=== PATIENT | female | born 1980 | race Caucasian/White ===

== ENCOUNTER → 2016-10-20 | Outpatient (CLI) | payer OTHER ==
--- NOTE | 2016-10-20 09:47 | XR ---
EXAMINATION TYPE: XR knee complete LT DATE OF EXAM: 10/20/2016 CLINICAL HISTORY: pain TECHNIQUE: Three views of the left knee are obtained. COMPARISON: None. FINDINGS: There is no acute fracture/dislocation. The tri-compartment joint spaces appear within no rmal limits. The overlying soft tissue appears unremarkable. IMPRESSION: There is no acute fracture or dislocation ICD 10 NO FRACTURE, INITIAL EVALUATION
== END | disposition home or self-care (01) ==
LOC: RADXRMAIN 09:09
PROVIDERS: ATTEND Physician Assistant
DX: M25.562 Pain in left knee (principal)

== ENCOUNTER 2017-08-15 13:39 | Emergency (ER) | payer OTHER ==
[2017-08-15 14:19] VITALS: RESP 18
[2017-08-15 14:49] LABS: Appearance,Urine Clear (Clear); Bilirubin,Urine Negative (Negative); Blood,Urine Negative (Negative); Color,Urine Light Yellow; Glucose,Urine (UA) Negative (Negative); Ketones,Urine Negative (Negative); Leukocyte Esterase,Urine Moderate (Negative); Mucus,Urine Rare /hpf; Nitrite,Urine Negative (Negative); Protein,Urine Negative (Negative); RBC,Urine 1 /hpf (0-5); Squamous Epithelial Cell,Urine 1 /hpf (0-4); Urobilinogen,Urine <2.0 mg/dL (<2.0); WBC,Urine 1 /hpf (0-5)
[2017-08-15] MEDS ORDERED: MORPHINE SULFATE 4 MG/ML SYRINGE IVP STA ×2 (14:52→16:43)
[2017-08-15] MEDS ORDERED: ONDANSETRON 4 MG/2 ML VIAL IVP STA ×2 (14:52→16:41)
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
[2017-08-15] MEDS ORDERED: ACETAMINOPHEN IV (For NPO) 1,000 MG in EMPTY BAG 1 BAG IVPB STA (14:56)
[2017-08-15] MEDS: SODIUM CHLORIDE 0.9% 500 ML IV SCH ×2 (15:04→15:31)
[2017-08-15 15:12] LABS: Basophils % (A) 0 %; Eosinophils # (A) 0.2 k/uL (0-0.7); Eosinophils % (A) 2 %; HCT 42.4 % (34.0-46.0); Lymphocytes # (A) 1.2 k/uL (1.0-4.8); Lymphocytes % (A) 14 %; MCH 27.5 pg (25.0-35.0); MCV 83.1 fL (80.0-100.0); Mean Platelet Volume 7.1; Monocytes # (A) 0.8 k/uL (0-1.0); Monocytes % (A) 8 %; Neutrophils # (A) 6.7 k/uL (1.3-7.7); Neutrophils % (A) 75 %; Platelet Count 229 k/uL (150-450); RDW 13.7 % (11.5-15.5); WBC 8.9 k/uL (3.8-10.6)
[2017-08-15 15:26] LABS: ALT 125 U/L (9-52); AST 114 U/L (14-36); Albumin 4.1 g/dL (3.5-5.0); Alkaline Phosphatase 116 U/L (38-126); Amylase 56 U/L (30-110); Anion Gap 14 mmol/L; Blood Urea Nitrogen 13 mg/dL (7-17); Calcium 9.3 mg/dL (8.4-10.2); Carbon Dioxide 23 mmol/L (22-30); Chloride 104 mmol/L (98-107); Glucose 96 mg/dL (74-99); Lipase 44 U/L (23-300); Potassium 4.1 mmol/L (3.5-5.1); Sodium 141 mmol/L (137-145); Total Bilirubin 0.3 mg/dL (0.2-1.3); Total Protein 7.3 g/dL (6.3-8.2)
[2017-08-15] MEDS ORDERED: diphenhydrAMINE 50 MG/ML 1 ML VIAL IVP STA (15:26)
[2017-08-15] MEDS ORDERED: FAMOTIDINE 20 MG/2 ML VIAL IV STA (15:26)
[2017-08-15] MEDS ORDERED: methylPREDNISolone SOD SUCCI 125 MG/2 ML VIAL IV STA (15:26)
[2017-08-15] MEDS ORDERED: RX INFO: IV CONTRAST WAS GIVEN 1 EACH MISC MISCELLANE PRN (15:27)
[2017-08-15 15:28] LABS: INR 0.9 (<1.2); Prothrombin Time 9.3 sec (9.0-12.0)
--- NOTE | 2017-08-15 16:49 | CT ---
EXAMINATION TYPE: CT abdomen pelvis w con DATE OF EXAM: 08/15/2017 COMPARISON: 08/01/2014 HISTORY: 37-year-old female EPIGASTRIC AND LOWER ABDOMINAL PAIN TECHNIQUE: Contiguous axial scanning of the abdomen and pelvis following administration of 100 ml Iso erin 300 IV contrast. Delayed images through the kidneys and coronal/sagittal reconstructions perform ed. CT DLP: 661.4 mGycm Automated exposure control for dose reduction was used. FINDINGS: Heart is normal size without pericardial effusion. Lung bases clear without pleural effusion. Liver is mildly enlarged to 18.0 cm. There appears to be low insertion of the cystic duct onto the bi le duct. Mild prominence to the biliary system likely secondary to postcholecystectomy status. Portal venous system is patent. No focal liver lesion seen. Adrenal glands, kidneys, spleen, and pancreas appear within normal limits. Prominent fluid filled small bowel loops in the mid to lower abdomen and pelvis. Normal appendix. No dilated small bowel loops, free fluid, or free air. Mild to moderate scattered stool. No pericolonic inflammatory change. Numerous scattered prominent mesenteric lymph nodes measuring up to 9 mm. Uterus and left ovary are visualized. Right ovary not clearly delineated from adjacent bowel loops. S mall amount of pelvic free fluid is noted. No pelvic lymphadenopathy seen. Bones: Some degenerative subarticular sclerosis of the right SI joint. No osseous destructive process . IMPRESSION: 1. PROMINENT FLUID-FILLED SMALL BOWEL LOOPS IN THE LOWER ABDOMEN AND PELVIS. ALSO, THERE ARE NUMEROUS BORDERLINE SIZED MESENTERIC LYMPH NODES MEASURING UP TO 9 MM. CORRELATE FOR POSSIBLE ENTERITIS/MESEN TERIC ADENITIS. 2. SMALL AMOUNT OF CUL-DE-SAC FREE FLUID LIKELY PHYSIOLOGIC.
--- NOTE | 2017-08-15 16:55 | XR ---
EXAMINATION TYPE: XR chest 2V DATE OF EXAM: 08/15/2017 COMPARISON: 11/22/2014 HISTORY: 37-year-old female with fever TECHNIQUE: PA and lateral views FINDINGS: There is some hazy density along the right heart margin. Heart normal size. Aorta and pulmonary vascu lature within normal limits. No other consolidation or pleural effusion. IMPRESSION: There is slight silhouetting of the right heart margin that could represent adjacent atelectasis or e emilie developing pneumonia.
[2017-08-15 17:19] VITALS: BP 127/55; PULSE 104; TEMP 98.5
[2017-08-17 12:54] LABS: C. trachomatis,PCR Negative (Neg,Equiv); Chlamydia trachomatis Source Vagina
[2017-08-18 11:39] LABS: N. gonorrhoeae,PCR Negative (Neg,Equiv); Neisseria Source Vagina
== END 2017-08-15 17:18 | disposition home or self-care (01) ==
LOC: EC 13:39
DX: R10.30 Lower abdominal pain, unspecified (principal); R10.10 Upper abdominal pain, unspecified; M54.5 Low back pain; R11.0 Nausea; R50.9 Fever, unspecified; K21.9 Gastro-esophageal reflux disease without esophagitis; F32.9 Major depressive disorder, single episode, unspecified; F41.9 Anxiety disorder, unspecified; Z79.899 Other long term (current) drug therapy; Z88.2 Allergy status to sulfonamides; Z91.013 Allergy to seafood; Z91.018 Allergy to other foods; Z91.041 Radiographic dye allergy status; Z90.49 Acquired absence of other specified parts of digestive tract
CPT/HCPCS: 36415; 80053; 82150; 83605; 83690; 85025; 85610; 85730; 81001; 81025; 87040; 87808; 87491; 87591; 87070; 87086; 71046; 74177; 99284; 96374; 96375 ×5; 96376; J2270; J1200; J2930; J2405; J0131; Q9967; 87205

== ENCOUNTER → 2017-10-06 | Outpatient (CLI) | payer OTHER ==
--- NOTE | 2017-10-06 13:58 | XR ---
EXAMINATION TYPE: XR chest 2V DATE OF EXAM: 10/06/2017 COMPARISON: Prior chest 08/15/2017 HISTORY: Chest pain TECHNIQUE: Frontal and lateral views of the chest are obtained. FINDINGS: There is no focal air space opacity, pleural effusion, or pneumothorax seen. The cardiac silhouette size is within normal limits. The osseous structures are intact. Suspect a pectus deform ity is present. Surgical clips present right upper quadrant. IMPRESSION: No acute cardiopulmonary process.
== END | disposition home or self-care (01) ==
LOC: RADXRMAIN 11:30
PROVIDERS: ATTEND Physician Assistant
DX: R07.89 Other chest pain (principal)
CPT/HCPCS: 71046

== ENCOUNTER → 2018-05-15 | Outpatient (CLI) | payer OTHER ==
[2018-05-17 01:45] LABS: Amit + Nort 70 ng/mL (90-250); Nortriptyline 20 ng/mL (50-140)
== END | disposition home or self-care (01) ==
LOC: LABWHC1 13:26
PROVIDERS: ATTEND Psychiatry & Neurology Psychiatry
DX: F32.9 Major depressive disorder, single episode, unspecified (principal)
CPT/HCPCS: 36415; G0480; 80335

== ENCOUNTER 2018-12-03 01:09 | Emergency (ER) | payer OTHER ==
[2018-12-03 01:20] VITALS: RESP 18; TEMP 98
[2018-12-03] MEDS ORDERED: SODIUM CHLORIDE 0.9% 500 ML 500 ML IV ONE (02:34)
[2018-12-03 02:49] LABS: Anisocytosis Slight; Basophils % (A) 0 %; Eosinophils # (A) 0.1 k/uL (0-0.7); Eosinophils % (A) 1 %; HCT 42.3 % (34.0-46.0); Lymphocytes # (A) 2.1 k/uL (1.0-4.8); Lymphocytes % (A) 17 %; MCH 28.2 pg (25.0-35.0); MCV 85.5 fL (80.0-100.0); Mean Platelet Volume 8.3; Monocytes # (A) 0.6 k/uL (0-1.0); Monocytes % (A) 5 %; Neutrophils # (A) 9.5 k/uL (1.3-7.7); Neutrophils % (A) 76 %; Platelet Count 230 k/uL (150-450); RBC 4.94 m/uL (3.80-5.40); RDW 16.2 % (11.5-15.5); WBC 12.6 k/uL (3.8-10.6)
[2018-12-03 02:53] LABS: Appearance,Urine Clear (Clear); Bilirubin,Urine Negative (Negative); Blood,Urine Negative (Negative); Color,Urine Yellow; Glucose,Urine (UA) Negative (Negative); Ketones,Urine 4+ (Negative); Leukocyte Esterase,Urine Small (Negative); Mucus,Urine Few /hpf; Nitrite,Urine Negative (Negative); Protein,Urine 1+ (Negative); RBC,Urine 3 /hpf (0-5); Specific Gravity,Urine 1.029 (1.001-1.035); Squamous Epithelial Cell,Urine 2 /hpf (0-4); Urobilinogen,Urine <2.0 mg/dL (<2.0); WBC,Urine 4 /hpf (0-5)
[2018-12-03 03:00] LABS: ALT 24 U/L (9-52); AST 21 U/L (14-36); African American GFR (CKD) >90 (>60 ml/min/1.73 sqM); Albumin 4.4 g/dL (3.5-5.0); Alkaline Phosphatase 64 U/L (38-126); Anion Gap 9 mmol/L; Blood Urea Nitrogen 9 mg/dL (7-17); Calcium 9.7 mg/dL (8.4-10.2); Carbon Dioxide 24 mmol/L (22-30); Chloride 104 mmol/L (98-107); Glucose 92 mg/dL (74-99); Potassium 3.7 mmol/L (3.5-5.1); Sodium 137 mmol/L (137-145); Total Bilirubin 0.4 mg/dL (0.2-1.3)
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
[2018-12-03 03:41] LABS: HCG,Quantitative Serum 59323.6 mIU/mL
[2018-12-03] MEDS ORDERED: CEPHALEXIN 500 MG CAP PO STA (04:05)
[2018-12-03] MEDS ORDERED: CEPHALEXIN 500MG STARTER PACK 4 CAP BTL PO STA (04:05)
[2018-12-03] MEDS ORDERED: SODIUM CHLORIDE 0.9% 500 ML 500 ML IV STA (04:07)
--- NOTE | 2018-12-03 04:11 | US ---
EXAM: US First Trimester, Transabdominal CLINICAL HISTORY: ITS.REASON US Reason: pain TECHNIQUE: Real-time transabdominal obstetrical ultrasound of the maternal pelvis and a first trimester with image documentation. COMPARISON: No relevant prior studies available. FINDINGS: Single live intrauterine measuring 6 weeks by crown-rump length with heart rate of 110 BPM. Uterus: 8.6 x 4.1 x 5.5 cm Right Ovary: 2.3 x 1.6 x 1.5 cm Left Ovary: 2.6 x 1.7 x 1.7 cm IMPRESSION: Single live intrauterine measuring 6 weeks.
[2018-12-03 04:34] VITALS: BP 104/75; PULSE 72
[2018-12-03] MEDS ORDERED: PYRIDOXINE 100 MG/ML 1 ML VIAL IVP SCH (09:00)
== END 2018-12-03 04:35 | disposition home or self-care (01) ==
LOC: EC 01:09
DX: O21.9 Vomiting of pregnancy, unspecified (principal); O99.89 Other specified diseases and conditions complicating pregnancy, childbirth and the puerperium; R82.71 Bacteriuria; O99.281 Endocrine, nutritional and metabolic diseases complicating pregnancy, first trimester; E88.89 Other specified metabolic disorders; R82.4 Acetonuria; R10.9 Unspecified abdominal pain; O99.611 Diseases of the digestive system complicating pregnancy, first trimester; K21.9 Gastro-esophageal reflux disease without esophagitis; M17.11 Unilateral primary osteoarthritis, right knee; O99.341 Other mental disorders complicating pregnancy, first trimester; F41.9 Anxiety disorder, unspecified; F32.9 Major depressive disorder, single episode, unspecified; Z88.2 Allergy status to sulfonamides; Z91.013 Allergy to seafood; Z91.018 Allergy to other foods; Z91.041 Radiographic dye allergy status; Z79.899 Other long term (current) drug therapy; Z90.49 Acquired absence of other specified parts of digestive tract; Z96.651 Presence of right artificial knee joint; Z98.890 Other specified postprocedural states; Z3A.01 Less than 8 weeks gestation of pregnancy
CPT/HCPCS: 36415; 80053; 85025; 81001; 84702; 76801; 99284; 96374; 96361 ×2; J3415

== ENCOUNTER 2019-03-20 23:54 | Outpatient (CLI) | payer OTHER ==
[2019-03-21] MEDS ORDERED: ONDANSETRON 4 MG/2 ML VIAL IVP STA (00:11)
[2019-03-21] MEDS ORDERED: LACTATED RINGERS 1,000 ML IV SCH (00:15)
[2019-03-21 01:38] VITALS: BP 102/60; PULSE 107; RESP 18; TEMP 97
--- NOTE | 2019-03-25 11:02 | P.MSEPDOC ---
Presenting Problems - Arrival Data Date of Arrival on Unit: 03/21/19 Time of Arrival on Unit: 23:45 Mode of Transport: Ambulatory - Complaint OB-Reason for Admission/Chief Complaint: Acute Nausea/Vomiting Medical History - Information : 3 Para: 2 Term: 2 : 0 Abortions: Spontaneous or Elective: 0 Number of Living Children: 2 - Gestational Age Gestational Age by HERACLIO (wks/days): 21 Weeks and 2 Days Review of Systems - Review of Systems Constitutional: No problems Breast: No problems ENT: No problems Cardiovascular: No problems Respiratory: No problems Gastrointestinal: No problems Genitourinary: No problems Musculoskeletal: No problems Neurological: No problems Skin: No problems Vital Signs - Temperature Temperature: 97.0 F Temperature Source: Temporal Artery Scan - Pulse Right Supine Pulse Rate: 107 Pulse Assessment Method: Automatic Cuff - Respirations Respiratory Rate: 18 Oxygen Delivery Method: Room Air O2 Sat by Pulse Oximetry: 99 - Blood Pressure Right Arm Blood Pressure: 102/60 Blood Pressure Mean: 74 Blood Pressure Source: Automatic Cuff Medical Screen Scoring (Pre) - Uterine Contractions Frequency: N/A Duration: N/A Intensity: N/A - Maternal Vital Signs Maternal Temperature: N/A Signs of Preeclampsia: N/A Maternal Respirations: N/A - Maternal Trauma Maternal Trauma: N/A - Assessment - Baby A Baseline FHR: 156 Position: N/A Station: N/A - Total Score - Baby A Total Score - Baby A: 0 - Total Score - Baby B Total Score - Baby B: 0 - Total Score - Baby C Total Score - Baby C: 0 - Level of Risk - Baby A Level of Risk - Baby A: Low (0-5) - Level of Risk - Baby B Level of Risk - Baby B: Low (0-5) - Level of Risk - Baby C Level of Risk - Baby C: Low (0-5) Physician Notification (Pre) - Physician Notified Physician Notified Date: 03/21/19 Physician Notified Time: 00:05 New Order Received: Yes Disposition - Disposition OB Disposition: Discharge to home Discharge Date: 03/21/19 Discharge Time: 01:27 I agree with the RN Medical Screening Exam: No Risk & Benefit of care provided described in d/c instruction: No Diagnosis: 21 WEEKS GESTATION OF
== END 2019-03-21 01:25 | disposition home or self-care (01) ==
LOC: FBPOP 23:54
PROVIDERS: ATTEND Obstetrics & Gynecology
DX: O21.2 Late vomiting of pregnancy (principal); Z3A.21 21 weeks gestation of pregnancy
CPT/HCPCS: 96360; 96375; G0463; J2405; 99214

== ENCOUNTER → 2019-09-09 | Outpatient (CLI) | payer OTHER ==
[2019-09-09 13:54] LABS: Basophils # (A) 0.1 k/uL (0-0.2); Basophils % (A) 1 %; Eosinophils # (A) 0.7 k/uL (0-0.7); Eosinophils % (A) 7 %; HCT 38.6 % (34.0-46.0); HGB 11.6 gm/dL (11.4-16.0); Hypochromasia Moderate; Lymphocytes # (A) 2.5 k/uL (1.0-4.8); Lymphocytes % (A) 24 %; MCH 26.5 pg (25.0-35.0); MCV 88.4 fL (80.0-100.0); Mean Platelet Volume 7.9; Monocytes # (A) 0.7 k/uL (0-1.0); Monocytes % (A) 6 %; Neutrophils # (A) 6.4 k/uL (1.3-7.7); Neutrophils % (A) 61 %; Platelet Count 217 k/uL (150-450); RBC 4.37 m/uL (3.80-5.40); RDW 13.5 % (11.5-15.5); WBC 10.5 k/uL (3.8-10.6)
== END | disposition home or self-care (01) ==
LOC: LABPAT 12:17
PROVIDERS: ATTEND Obstetrics & Gynecology
DX: Z01.818 Encounter for other preprocedural examination (principal)
CPT/HCPCS: 85025

== ENCOUNTER → 2019-11-13 | Outpatient (CLI) | payer OTHER ==
[2019-11-13 14:07] LABS: Basophils % (A) 1 %; Eosinophils # (A) 0.1 k/uL (0-0.7); Eosinophils % (A) 2 %; HCT 40.3 % (34.0-46.0); HGB 12.6 gm/dL (11.4-16.0); Hypochromasia Slight; Lymphocytes # (A) 2.1 k/uL (1.0-4.8); Lymphocytes % (A) 30 %; MCH 26.3 pg (25.0-35.0); MCHC 31.2 g/dL (31.0-37.0); MCV 84.3 fL (80.0-100.0); Mean Platelet Volume 8.2; Monocytes # (A) 0.4 k/uL (0-1.0); Monocytes % (A) 5 %; Neutrophils # (A) 4.4 k/uL (1.3-7.7); Neutrophils % (A) 62 %; Platelet Count 283 k/uL (150-450); RBC 4.78 m/uL (3.80-5.40); RDW 15.2 % (11.5-15.5); WBC 7.1 k/uL (3.8-10.6)
== END | disposition home or self-care (01) ==
LOC: LABPAT 12:01
PROVIDERS: ATTEND Obstetrics & Gynecology
DX: Z01.818 Encounter for other preprocedural examination (principal); Z30.2 Encounter for sterilization
CPT/HCPCS: 85025

== ENCOUNTER 2019-12-02 09:12 | Day surgery (SDC) | payer OTHER ==
[2019-11-26 11:58] VITALS: BMI 24.1
--- NOTE | 2019-11-28 15:11 | HP ---
HISTORY AND PHYSICAL DATE OF SURGERY: 12/02/2019 HISTORY OF PRESENT ILLNESS: The patient is a 39-year-old 3, para 2-1-0-3, who is status post normal vaginal delivery several months ago and has requested permanent sterilization with tubal ligation. She understands the permanent nature of the procedure and wishes to proceed. PAST MEDICAL HISTORY: None. PAST SURGICAL HISTORY: Significant for D and C on two separate occasions. Retained placenta following delivery. She additionally had a laparoscopic cholecystectomy in 2014 and she has had several knee surgeries on the right knee. There were no history of any anesthetic concerns. OBSTETRICAL HISTORY: 3, para 2-1-0-3 with 2 term deliveries and 1 delivery. The last 2 which were complicated by significant retained placenta and obstetrical/ hemorrhage. Method of contraception currently is Depo-Provera. GYNECOLOGIC HISTORY: Unremarkable with no history of any infections to include STDs. FAMILY HISTORY: Noncontributory. SOCIAL HISTORY: The patient is single and does work outside the home. She is a nonsmoker, though she does have a history of smoking in the past. She reports occasional alcohol. No other significant social concerns. CURRENT MEDICATIONS: Include Depo-Provera as noted above. Additionally, she takes omeprazole 40 mg daily and Zoloft 50 mg daily and Ventolin metered-dose inhaler as needed. ALLERGIES: SULFA caused hives. REVIEW OF SYSTEMS: Confined to history of present illness. PHYSICAL EXAMINATION: Her vital signs are stable. The patient is afebrile. In general, this is a well- developed, well-nourished white female in no acute distress. Her heart has a regular rhythm and rate without murmur. Her lungs are clear to auscultation bilaterally in all molina. Her abdomen is nondistended, has normoactive bowel sounds, soft, nontender, without any palpable masses, hepatosplenomegaly, or hernias. Her extremities are without any cyanosis, clubbing, or edema and are nontender to palpation bilaterally. Pelvic examination demonstrates normal external genitalia and BUS with normal vaginal mucosa and cervix. There is no cervical motion tenderness. Uterus is approximately 45 weeks in size, mid plane, mobile, nontender, normal in shape. The adnexa are normal AND nontender without mass bilaterally. ASSESSMENT AND PLAN: Undesired fertility: The patient has requested laparoscopic bilateral tubal occlusion with Filshie clips. She understands the permanent nature of the procedure as well as the subsequent potential risk for ectopic should it fail. The risks and complications of the procedure itself have been thoroughly discussed including risk for bleeding, bleeding requiring transfusion, infection, and injury to local structures to specifically include the bowel, bladder, and ureters. She has understood all this and agreed to proceed. We are scheduled for the morning of December 01 for the above procedure as outlined above. MMODL / IJN: [id number] /
[~2019-12-02 09:12] MED LIST: DEXAMETHASONE SOD PHOSPHATE 10 MG/ML 1 ML VIAL IV ONE; LACTATED RINGERS 1,000 ML IV SCH; Pre Op ABX Message 1 EACH MISC MISCELLANE ONE
[2019-12-02] MEDS ORDERED: LIDOCAINE 1% (10MG/ML) FOR IV START INTRADERMA ONE (09:42)
[2019-12-02] MEDS ORDERED: SCOPOLAMINE 1.5MG/72HR PATCH TRANSDERM ONE (09:52)
[2019-12-02] MEDS: ONDANSETRON 4 MG/2 ML VIAL IVP ONE ×2 (09:52→11:56)
[2019-12-02] MEDS ORDERED: ONDANSETRON 4 MG/2 ML VIAL ONE (09:54)
[2019-12-02] MEDS ORDERED: NEOSTIGMINE 1 MG/ML 10 ML VIAL ONE (10:52)
[2019-12-02] MEDS ORDERED: LIDOCAINE 1% INJ 10MG/ML (20 ML MDV) ONE (10:52)
[2019-12-02] MEDS ORDERED: SUCCINYLCHOLINE CHLORIDE 100 MG/5 ML SYR IV ONE (10:52)
[2019-12-02] MEDS ORDERED: PROPOFOL 10 MG/ML 20 ML VIAL IV ONE (10:52)
[2019-12-02] MEDS ORDERED: KETOROLAC 15 MG/ML 1 ML VIAL ONE (10:52)
[2019-12-02] MEDS ORDERED: fentaNYL (PF) 50 MCG/ML 2 ML AMP ONE (10:52)
[2019-12-02] MEDS ORDERED: ROCURONIUM BROMIDE 10 MG/ML 5 ML VIAL IV ONE (10:52)
[2019-12-02] MEDS ORDERED: GLYCOPYRROLATE 0.2 MG/ML 2 ML VIAL ONE (10:52)
[2019-12-02] MEDS ORDERED: MIDAZOLAM 2 MG/2 ML VIAL ONE (10:52)
[2019-12-02] MEDS ORDERED: HYDROmorphone (PF) 1 MG/ML ONE (10:52)
[2019-12-02] MEDS ORDERED: BUPIVACAINE (PF) 0.25% 30 ML VIAL SQ ONE ×2 (11:22→11:27)
[2019-12-02] MEDS ORDERED: SIMETHICONE 80 MG CHEWABLE PO PRN (11:44)
[2019-12-02] MEDS ORDERED: METOCLOPRAMIDE 5 MG/ML 2 ML VIAL IVP PRN (11:44)
[2019-12-02] MEDS ORDERED: diphenhydrAMINE 50 MG/ML 1 ML VIAL IVP PRN (11:44)
[2019-12-02] MEDS ORDERED: Acetaminophen-Codeine 300-30mg TAB PO PRN ×2 (11:44)
[2019-12-02] MEDS ORDERED: IBUPROFEN 600 MG TAB PO PRN (11:44)
[2019-12-02] MEDS ORDERED: ONDANSETRON 4 MG/2 ML VIAL IVP PRN (11:44)
[2019-12-02] MEDS ORDERED: KETOROLAC 15 MG/ML 1 ML VIAL IVP PRN (11:44)
[2019-12-02] MEDS ORDERED: LACTATED RINGERS 1,000 ML IV SCH (11:45)
--- NOTE | 2019-12-02 11:51 | P.OP ---
Date of Procedure: 12/02/19 Preoperative Diagnosis: 1. Multiparity #2. Undesired fertility Postoperative Diagnosis: Same Procedure(s) Performed: #1. Laparoscopic bilateral tubal occlusion with Filshie clips Anesthesia: LATRICE Surgeon: Randell Valle Estimated Blood Loss (ml): 2 IV fluids (ml): 500 Urine output (ml): 50 Pathology: none sent Condition: stable Disposition: PACU Operative Findings: Preoperative pelvic examination demonstrated a 4 week anteverted mobile normal shaped uterus with normal adnexa bilaterally. These findings were confirmed intraoperatively with an entirely normal pelvis including uterus, tubes, and ovaries. There was no evidence of endometriosis or any scarring in the pelvis. The appendix was entirely normal though somewhat long. The small bowel, large bowel, liver, and diaphragm were normal to inspection where seen. Description of Procedure: The patient was prepped and draped in usual fashion after general endotracheal anesthesia was administered by the anesthesiologist. A speculum was placed and the anterior lip of the cervix grasped with a single-tooth tenaculum allowing placement of an acorn cannula for manipulation without difficulty. The bladder wasn't draining approximately 50 mL of clear urine. Attention was turned to the abdomen where a 5 mm incision was made and a semilunar fashion and a foldable the umbilicus allowing insertion of a 5 mm optical trocar under direct vi sualization without difficulty. A pneumoperitoneum was infused in Trendelenburg positioning utilized to sweep the bowel from the pelvis. A site was selected approximate 4-5 cm above the symphysis in the midline where an 8 mm incision was made in the transverse plane allowing insertion of an 8 mm trocar under direct visualization without difficulty. The blunt probe was utilized to further sweep the bowel from the pelvis with entirely normal findings as noted above. The probe was replaced with a Filshie clip applicator which was utilized to place a clip approximately 2-3 cm from the cornu of the uterus across the entire thickness of the right fallopian tube. A second Filshie clip was placed across the left fallopian tube in similar fashion. Remainder of the abdomen was then explored with the findings entirely normal as noted above. All instrumentation was removed and the pneumoperitoneum evacuated through the 2 trocar sites and the trochars removed. The skin incisions were closed with interrupted subcuticular stitches of 4-0 Vicryl followed by half-inch Steri-Strips placed with Mastisol. The incisions were infused with a total of 10 mL of quarter percent Marcaine without epinephrine equally divided between the 2 incisions. Estimated blood loss for the case was 2 mL or less. There were no complications. All sponge, instrument, and needle counts were correct. The patient tolerated the procedure well and proceeded to the recovery room in stable condition.
[2019-12-02 11:53] VITALS: TEMP 97.4
[2019-12-02] MEDS: HYDROmorphone 0.5 MG/0.5 ML SYRINGE IVP PRN ×2 (11:56→12:02)
[2019-12-02] MEDS ORDERED: HYDROcodone/APAP 5-325MG 1 EACH TAB ONE ×2 (12:37→13:16)
[2019-12-02] MEDS ORDERED: HYDROcodone/APAP 5-325MG 1 EACH TAB PO ONE ×3 (12:39→13:15)
[2019-12-02 13:01] VITALS: RESP 20
[2019-12-02 13:19] VITALS: BP 118/72; PULSE 103
== END 2019-12-02 13:56 | disposition home or self-care (01) ==
LOC: OR 09:12
PROVIDERS: ATTEND Obstetrics & Gynecology
DX: Z30.2 Encounter for sterilization (principal); J45.909 Unspecified asthma, uncomplicated; E11.9 Type 2 diabetes mellitus without complications; N19 Unspecified kidney failure; E07.9 Disorder of thyroid, unspecified; R56.9 Unspecified convulsions; F32.9 Major depressive disorder, single episode, unspecified; F41.9 Anxiety disorder, unspecified; K21.9 Gastro-esophageal reflux disease without esophagitis; Z90.49 Acquired absence of other specified parts of digestive tract; Z79.3 Long term (current) use of hormonal contraceptives; Z87.891 Personal history of nicotine dependence; Z79.899 Other long term (current) drug therapy; Z88.2 Allergy status to sulfonamides; Z91.013 Allergy to seafood; Z91.048 Other nonmedicinal substance allergy status; Z91.018 Allergy to other foods; Z86.73 Personal history of transient ischemic attack (TIA), and cerebral infarction without residual deficits
CPT/HCPCS: 81025; 58671; J2250; J1100; J2710; J2405; J2001; J3010; J1170 ×2; J1885; J0330; J2704

== ENCOUNTER 2020-02-01 10:10 | Emergency (ER) | payer OTHER ==
[2020-02-01] MEDS ORDERED: KETOROLAC 15 MG/ML 1 ML VIAL IVP STA (10:23)
[2020-02-01] MEDS ORDERED: ONDANSETRON 4 MG/2 ML VIAL IVP STA (10:23)
[2020-02-01] MEDS ORDERED: SODIUM CHLORIDE 0.9% 1,000 ML IV STA ×2 (10:23)
[2020-02-01] MEDS ORDERED: DEXAMETHASONE SOD PHOSPHATE 10 MG/ML 1 ML VIAL IV STA (10:24)
[2020-02-01 10:26] VITALS: RESP 18
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
[2020-02-01 10:53] LABS: African American GFR (CKD) >90 (>60 ml/min/1.73 sqM); Albumin 4.2 g/dL (3.5-5.0); Anion Gap 8 mmol/L; Blood Urea Nitrogen 15 mg/dL (7-17); Calcium 9.5 mg/dL (8.4-10.2); Carbon Dioxide 24 mmol/L (22-30); Chloride 105 mmol/L (98-107); Glucose 109 mg/dL (74-99); Non-African American GFR(CKD) >90 (>60 ml/min/1.73 sqM); Potassium 3.8 mmol/L (3.5-5.1); Sodium 137 mmol/L (137-145); Total Protein 7.6 g/dL (6.3-8.2)
[2020-02-01 10:59] LABS: AST 914 U/L (14-36); Basophils % (A) 0 %; Eosinophils # (A) 0.1 k/uL (0-0.7); Eosinophils % (A) 0 %; HCT 41.7 % (34.0-46.0); HGB 13.3 gm/dL (11.4-16.0); Lymphocytes # (A) 1.2 k/uL (1.0-4.8); Lymphocytes % (A) 8 %; MCH 28.2 pg (25.0-35.0); MCHC 31.8 g/dL (31.0-37.0); MCV 88.7 fL (80.0-100.0); Mean Platelet Volume 8.5; Monocytes # (A) 0.9 k/uL (0-1.0); Monocytes % (A) 6 %; Neutrophils # (A) 12.4 k/uL (1.3-7.7); Neutrophils % (A) 84 %; Platelet Count 197 k/uL (150-450); RDW 14.1 % (11.5-15.5); WBC 14.8 k/uL (3.8-10.6)
[2020-02-01 11:06] LABS: ALT 761 U/L (4-34); Alkaline Phosphatase 233 U/L (38-126)
[2020-02-01 12:35] VITALS: BP 133/78; PULSE 76; TEMP 98.3
[2020-02-01 20:04] LABS: Hepatitis A Antibody IgM Non-Reactive (Non-Reactive); Hepatitis B Core IgM Non-Reactive (Non-Reactive); Hepatitis B Surface Antigen Non-Reactive (Non-Reactive); Hepatitis C IgG Antibody Non-Reactive (Non-Reactive)
== END 2020-02-01 12:35 | disposition home or self-care (01) ==
LOC: EC 10:10
DX: J03.90 Acute tonsillitis, unspecified (principal); R74.01 Elevation of levels of liver transaminase levels; R11.2 Nausea with vomiting, unspecified; K21.9 Gastro-esophageal reflux disease without esophagitis; J45.909 Unspecified asthma, uncomplicated; Z79.899 Other long term (current) drug therapy; Z91.048 Other nonmedicinal substance allergy status; Z91.013 Allergy to seafood; Z88.2 Allergy status to sulfonamides; Z91.018 Allergy to other foods; Z87.891 Personal history of nicotine dependence; Z96.651 Presence of right artificial knee joint
CPT/HCPCS: 36415; 86665 ×2; 80053; 80074; 86663; 83690; 85025; 86308; 86664; 87081; 87430; 99283; 96374; 96375 ×2; 96361 ×2; J1100; J2405; J1885

== ENCOUNTER → 2020-05-06 | Outpatient (CLI) | payer OTHER ==
--- NOTE | 2020-05-06 14:09 | XR ---
EXAMINATION TYPE: XR lumbar spine 2 or 3V DATE OF EXAM: 05/06/2020 COMPARISON: None HISTORY: Low back pain TECHNIQUE: Three-view lumbar spine FINDINGS: There may be a transitional L5 vertebral level. The T12 ribs appear rudimentary. Pedicles appear intact. Vertebral body heights are preserved. Disc heights are preserved. IMPRESSION: 1. No acute osseous abnormality lumbar spine
== END | disposition home or self-care (01) ==
LOC: RADXRMAIN 13:51
PROVIDERS: ATTEND Family Medicine
DX: M54.5 Low back pain (principal)
CPT/HCPCS: 72100

== ENCOUNTER → 2022-04-13 | Outpatient (CLI) | payer OTHER ==
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
== END ==
LOC: SLEEP 10:21
PROVIDERS: ATTEND Internal Medicine
DX: R06.83 Snoring (principal); G25.81 Restless legs syndrome; K21.9 Gastro-esophageal reflux disease without esophagitis; M54.9 Dorsalgia, unspecified; Z96.651 Presence of right artificial knee joint; Z99.89 Dependence on other enabling machines and devices; F32.A Depression, unspecified; J45.909 Unspecified asthma, uncomplicated; Z91.041 Radiographic dye allergy status; Z88.2 Allergy status to sulfonamides; Z91.018 Allergy to other foods; Z91.013 Allergy to seafood; Z87.891 Personal history of nicotine dependence
CPT/HCPCS: 99211

== ENCOUNTER 2022-06-14 06:44 | Day surgery (SDC) | payer OTHER ==
[2022-06-08 12:18] VITALS: BMI 31.5
[2022-06-14 07:19] VITALS: RESP 16; TEMP 98.3
[2022-06-14] MEDS ORDERED: LACTATED RINGERS 1,000 ML IV ONE (07:26)
[2022-06-14] MEDS ORDERED: fentaNYL (PF) 50 MCG/ML 2 ML AMP ONE (07:38)
[2022-06-14] MEDS ORDERED: MIDAZOLAM 2 MG/2 ML VIAL ONE (07:38)
[2022-06-14] MEDS ORDERED: methylPREDNISolone ACETATE 80 MG/ML 1 ML VIAL ONE (07:38)
--- NOTE | 2022-06-14 07:51 | P.PCN ---
Date of Procedure: 06/14/22 Procedure(s) Performed: PREOPERATIVE DIAGNOSIS: 1- Lumbar Degenerative Disc Diseases 2-lumbar spinal stenosis POSTOPERATIVE DIAGNOSIS: Same as preop diagnosis. PROCEDURE 1. Lumbar epidural steroid injection under fluoroscopic guidance at the L4-5 level. (Fluoroscopy imaging was available in radiology department) 2. Lumbar epidurogram. ANESTHESIA: moderate sedation with intravenous Versed 2 mg ,and fentanyle 100 Mcg Sedation start time : 740 Sedation end time : 746 EBL: Minimal PROCEDURE INDICATION: The patient with low back pain and radiculitis symptoms unresponsive to conservative treatment. Fluoroscopy was used to optimize visualization of the needle placement and to maximize safety. PROCEDURE DESCRIPTION / TECHNIQUE: The patient was seen and identified in the preoperative area. Risks, benefits, complications including but not limited to infections ,bleeding ,allergic reaction to the medications ,nerve damage and not complete pain releife , and alternatives were discussed with the patient. The patient agreed to proceed with the procedure and signed the consent. IV was started, and vital signs were stable. Patient was taken to the OR and time out was completed. The patient was placed in the prone position on procedure table and a pillow was placed under the abdomen to reduce lumbar lordosis. The lumbosacral area was prepped and draped in the usual sterile fashion.ere closely monitored during the procedure. Conscious sedation was used during the procedure to decrease patients anxiety. Vital signs was monitered during the entire procedure. Using anterior-posterior fluoroscopy, the L4-5 interlaminar space was identified and the skin over this site was marked and then infiltrated with 1% lidocaine subcutaneously. Subsequently, a 20-gauge Tuohy epidural needle was inserted and advanced toward the epidural space using the ``Loss of resistance technique and guided by AP and lateral fluoroscopy, after negative aspiration for blood and CSF and in the absence of paresthesias. Again after negative aspiration, a 6 ml mixture containing 80 mg of Depo-medrol ( Preservetive Free ), and 2 ml of preservative free Normal Saline, and 2 ml of preservative free lidocaine 1% so lution was injected and a washout of epidurogram was seen. Needle was withdrawn intact, skin was cleansed, and bandages were applied. COMPLICATIONS: None DISPOSITION / PLANS: The patient was placed in a supine position and transferred to the recovery area in a stable condition for observation. There was no evidence of lower extremity motor or sensory deficit after the procedure. Patient was discharged from the recovery room after meeting discharge criteria. Home discharge instructions were given to the patient by the staff. The patient was reexamined prior to discharge. The patient will schedule a follow up in the clinic in 2-4 weeks.
[2022-06-14] MEDS ORDERED: IV FLUID CONTINUATION 1,000 ML IV ONE (07:55)
--- NOTE | 2022-06-14 08:00 | FL ---
Intraoperative/procedural fluoroscopic services were provided for lumbar epidural steroid injection. Total fluoroscopy time is 1 second with a total of 1 submitted image to PACS. Please see the operativ e note for further details.
[2022-06-14 08:24] VITALS: BP 115/79; PULSE 85
== END 2022-06-14 08:26 | disposition home or self-care (01) ==
LOC: ORPAIN 06:44
PROVIDERS: ATTEND Specialist
DX: M51.16 Intervertebral disc disorders with radiculopathy, lumbar region (principal); M48.061 Spinal stenosis, lumbar region without neurogenic claudication; Z91.041 Radiographic dye allergy status; Z91.013 Allergy to seafood
CPT/HCPCS: 81025; 62323; J2250; J1040; J3010

== ENCOUNTER → 2022-07-04 | Outpatient (CLI) | payer OTHER ==
[2022-07-04 12:42] VITALS: BP 123/80; PULSE 98; RESP 18; TEMP 97.9
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
== END ==
LOC: PNWHC3 12:06
PROVIDERS: ATTEND Specialist
DX: M51.36 Other intervertebral disc degeneration, lumbar region (principal); M47.816 Spondylosis without myelopathy or radiculopathy, lumbar region; M48.061 Spinal stenosis, lumbar region without neurogenic claudication; J45.909 Unspecified asthma, uncomplicated; M19.90 Unspecified osteoarthritis, unspecified site; K21.9 Gastro-esophageal reflux disease without esophagitis; Z87.891 Personal history of nicotine dependence; Z91.02 Food additives allergy status; Z91.013 Allergy to seafood; Z91.018 Allergy to other foods; Z88.2 Allergy status to sulfonamides; M51.26 Other intervertebral disc displacement, lumbar region
CPT/HCPCS: 99211

== ENCOUNTER 2022-07-17 08:45 | Emergency (ER) | payer OTHER ==
[2022-07-17 08:57] VITALS: BP 117/77; PULSE 93; RESP 16; TEMP 98.8
[2022-07-17] MEDS ORDERED: KETOROLAC 15 MG/ML 1 ML VIAL IVP STA (09:51)
[2022-07-17] MEDS ORDERED: KETOROLAC 15 MG/ML 1 ML VIAL IM STA (09:51)
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
--- NOTE | 2022-07-17 10:11 | XR ---
EXAMINATION TYPE: XR knee complete RT DATE OF EXAM: 07/17/2022 CLINICAL HISTORY: Injury with pain TECHNIQUE: Three views of the right knee are obtained. COMPARISON: None. FINDINGS: There is no acute fracture/dislocation evident in the right knee. Partial visualization of a large intramedullary leonor in the tibia. There is metallic surgical change anterior distal femur als o present. Mild tricompartment joint space loss. No significant spurring. Moderate to large-sized sup rapatellar joint effusion noted. IMPRESSION: As above.
[2022-07-17] MEDS ORDERED: ACET/COD 300 MG/30 MG STARTER PACK 6 TAB BTL PO STA (10:26)
== END 2022-07-17 10:28 | disposition home or self-care (01) ==
LOC: EC 08:45
DX: S83.91XA Sprain of unspecified site of right knee, initial encounter (principal); J45.909 Unspecified asthma, uncomplicated; K21.9 Gastro-esophageal reflux disease without esophagitis; F32.A Depression, unspecified; F41.9 Anxiety disorder, unspecified; F12.90 Cannabis use, unspecified, uncomplicated; Z87.891 Personal history of nicotine dependence; Z79.899 Other long term (current) drug therapy; Z88.1 Allergy status to other antibiotic agents; Z88.2 Allergy status to sulfonamides; Z88.8 Allergy status to other drugs, medicaments and biological substances; Z90.49 Acquired absence of other specified parts of digestive tract; X50.1XXA Overexertion from prolonged static or awkward postures, initial encounter
CPT/HCPCS: 96372 ×2; 99283 ×2; 96374; 73562; L1830; J1885

== ENCOUNTER 2022-07-28 06:52 | Day surgery (SDC) | payer OTHER ==
[2022-07-28] MEDS ORDERED: LIDOCAINE 1% (10MG/ML) FOR IV START INTRADERMA PRN (06:59)
[2022-07-28] MEDS ORDERED: LACTATED RINGERS 1,000 ML IV SCH ×2 (06:59)
[2022-07-28 07:25] VITALS: TEMP 97.5
[2022-07-28] MEDS ORDERED: MIDAZOLAM 2 MG/2 ML VIAL ONE (07:45)
[2022-07-28] MEDS ORDERED: fentaNYL (PF) 50 MCG/ML 2 ML AMP ONE (07:45)
[2022-07-28] MEDS ORDERED: methylPREDNISolone ACETATE 80 MG/ML 1 ML VIAL ONE (07:45)
--- NOTE | 2022-07-28 07:56 | P.PCN ---
Date of Procedure: 07/28/22 Procedure(s) Performed: PREOPERATIVE DIAGNOSIS: 1- Lumbar Degenerative Disc Diseases 2-lumbar spinal stenosis POSTOPERATIVE DIAGNOSIS: Same as preop diagnosis. PROCEDURE 1. Lumbar epidural steroid injection under fluoroscopic guidance at the L4-5 level. (Fluoroscopy imaging was available in radiology department) ANESTHESIA: moderate sedation with intravenous Versed 2 mg ,and fentanyle 100 Mcg Sedation start time : 0748 Sedation end time : 0753 EBL: Minimal PROCEDURE INDICATION: The patient with low back pain and radiculitis symptoms unresponsive to conservative treatment. Fluoroscopy was used to optimize visuali zation of the needle placement and to maximize safety. PROCEDURE DESCRIPTION / TECHNIQUE: The patient was seen and identified in the preoperative area. Risks, benefits, complications including but not limited to infections ,bleeding ,allergic reaction to the medications ,nerve damage and not complete pain releife , and alternatives were discussed with the patient. The patient agreed to proceed with the procedure and signed the consent. IV was started, and vital signs were stable. Patient was taken to the OR and time out was completed. The patient was placed in the prone position on procedure table and a pillow was placed under the abdomen to reduce lumbar lordosis. The lumbosacral area was prepped and draped in the usual sterile fashion.ere closely monitored during the procedure. Conscious sedation was used during the procedure to decrease patients anxiety. Vital signs was monitered during the entire procedure. Using anterior-posterior fluoroscopy, the L4-5 interlaminar space was identified and the skin over this site was marked and then infiltrated with 1% lidocaine subcutaneously. Subsequently, a 20-gauge Tuohy epidural needle was inserted and advanced toward the epidural space using the ``Loss of resistance technique and guided by AP and lateral fluoroscopy, after negative aspiration for blood and CSF and in the absence of paresthesias. Again after negative aspiration, a 6 ml mixture containing 80 mg of Depo-medrol ( Preservetive Free ), and 2 ml of preservative free Normal Saline, and 2 ml of preservative free lidocaine 1% solution was injected . Needle was withdrawn intact, skin was cleansed, and bandages were applied. COMPLICATIONS: None DISPOSITION / PLANS: The patient was placed in a supine position and transferred to the recovery area in a stable condition for observation. There was no evidence of lower extremity motor or sensory deficit after the procedure. Patient was discharged from the recovery room after meeting discharge criteria. Home discharge instructions were given to the patient by the staff. The patient was reexamined prior to discharge. The patient will schedule a follow up in the clinic in 2-4 weeks. note= Isovue was injected because patient has ALLERGY to iodine and IVP dye.
[2022-07-28] MEDS ORDERED: IV FLUID CONTINUATION 900 ML IV ONE (08:00)
[2022-07-28 08:04] VITALS: RESP 20
[2022-07-28 08:17] VITALS: BP 121/88; PULSE 69
--- NOTE | 2022-07-28 12:24 | FL ---
EXAMINATION TYPE: FL guided pain mgmt statistic DATE OF EXAM: 07/28/2022 FLUOROSCOPY Fluoroscopy time of 1 seconds was used during lumbar epidural steroid injection. 1 image/s document/ s the procedure. DAP .[id number].
== END 2022-07-28 08:32 ==
LOC: ORPAIN 06:52
PROVIDERS: ATTEND Specialist
DX: M51.16 Intervertebral disc disorders with radiculopathy, lumbar region (principal); M48.061 Spinal stenosis, lumbar region without neurogenic claudication; Z91.041 Radiographic dye allergy status
CPT/HCPCS: 81025; 62323; J2250; J1040; J3010

== ENCOUNTER → 2022-08-17 | Outpatient (CLI) | payer OTHER ==
[2022-08-17 15:10] VITALS: BP 135/79; RESP 18; TEMP 97.8
--- NOTE | 2022-08-17 15:33 | P.PAINPG ---
PQRS Measure Charge Sheet Comment: A 42 yr old female with a history of severe and chronic LBP secondary to lumbar DDD and spondylosis with facet arthropathy without myelopathy presents today for evaluation s/p ROLANDO L4-L5. Pt states she experienced 80 % pain relief x 3 wks s/p procedure. Pain level is provoked at 0/10 in intensity. No provoc ative factors at this time. Pain is palliated w injection. Interventional pain procedures completed include ROLANDO L4-5 Patient is currently on DENIES Patient denies any side effects of the medication(s), denies excessive drowsiness or sleepiness, denies suicidal ideation and reports that the current pain medication is helping to control the pain and improve activities of daily living. Patient denies any motor or sensory deficits. Patient denies any fever or night sweats, denies any change in the bowel movements or urination. Physical Examination: -Constitutional: Cooperative. Not in acute distress . - Neurologic: Cranial nerve II to XII intact. No focal neurological deficits. - Psychatric: Alert & oriented x 3. Matching mood & appropriate affect. Judgment and insight intact. - Musculoskeletal: Cervical spine: Muscle bulk/ tone/ strength in the bilateral upper extremities normal Vertebral body tenderness to palpation over Spurling test positive Distraction test positive Facet loading test positive TTP Thoracic spine Muscle bulk / tone/ strength in the bilateral paraspinal muscles normal Vertebral body tender to palpation over Facet loading test positive TTP Lumbar spine: Motor bulk/ tone/ strength lower extremities , thigh and legs : 5/5 Deep tendon reflexes : Normal Knee Jerk. Normal Ankle Jerk . Vertebral body tenderness to palpation over Hicks Test positive Lumbar Facet Loading Test positive Straight Leg Raise: positive at 30 degrees right side/ left side Gaenslen's Test positive Sacral spine : Severe tenderness over the Sacroiliac joint: right side / left side Range of motion: Flexion of the lumbar spine <60 degrees Range of motion: Extension of the lumbar spine <20 degrees Gaenslen's Test positive right side / left side Padmini test: positive right side / left side Thigh Thrust Test positive right side / left side Sacral Thrust Test positive right side / left side Assessment and plan: Chronic LBP secondary to lumbar DDD, spondylosis with facet arthropathy without myelopathy Exhibited sufficient and optimal pain relief. May return to clinic on an as needed basis. All questions answered. I have spent less than 30 minutes on patient care today. Dr Small was available by phone for the evaluation of this patient. The time was used to review the medical records including relevant urine studies and Prescription history (MAPs), review of the available imaging, evaluation and examination of the patient, coordination of care with the medical staff and if applicable referring physicians, as well as creation of the medical record PQRS Narrative: Smoking Status Never smoker Hx Alcohol Use (MH) No Home Medications: Ambulatory Orders Omeprazole [PriLOSEC] 20 mg PO HS 08/15/17 ARIPiprazole [Abilify] 5 mg PO HS 11/26/19 Albuterol Inhaler [Ventolin Hfa Inhaler] 2 puff INHALATION RT-Q6H PRN 02/01/20 Amitriptyline HCl [Elavil] 50 mg PO HS 02/01/20 Dicyclomine [Bentyl] 20 mg PO TID PRN 02/01/20 Ondansetron Odt [Zofran Odt] 4 mg PO Q8HR PRN #12 tab 02/01/20 HYDROcodone/APAP 5-325MG [[place] 5-325] 1 tab PO Q4HR PRN 3 Days #18 tab 05/25/22 Dextroamphetamine/Amphetamine [Adderall] 10 mg PO BID 30 Days #60 tab 06/08/22 Ibuprofen [Motrin] 800 mg PO Q8HR PRN #30 tab 07/17/22 Controlled Substance Measures - Controlled Substance Measures Is patient prescribed a controlled substance at discharge?: No
== END ==
LOC: PNWHC3 13:47
PROVIDERS: ATTEND Specialist
DX: M51.36 Other intervertebral disc degeneration, lumbar region (principal); M47.816 Spondylosis without myelopathy or radiculopathy, lumbar region; G89.29 Other chronic pain; Z91.041 Radiographic dye allergy status; Z91.048 Other nonmedicinal substance allergy status; Z91.013 Allergy to seafood; Z91.018 Allergy to other foods; Z88.2 Allergy status to sulfonamides
CPT/HCPCS: 99211

== ENCOUNTER → 2022-09-15 | Outpatient (CLI) | payer OTHER ==
--- NOTE | 2022-09-16 08:33 | MR ---
EXAMINATION TYPE: MR knee RT wo con DATE OF EXAM: 09/15/2022 COMPARISON: 07/17/2022 HISTORY: 42 year-old female S83.241A, Right knee pain x 6 mos, hx injury and prior surgery. TECHNIQUE: Multiplanar, multisequence imaging of the right knee is performed without IV contrast. FINDINGS: The presence of prominent metal suppression artifact limits the evaluation. There is an underlying an tegrade intramedullary nail within the anterior aspect of the visualized proximal tibia. Underlying p atellofemoral compartmental arthroplasty. There is a moderate joint effusion and mild chronic synovitis. There is severe, full-thickness cartilage loss along the entire anterior aspect of the lateral femora l condyle articular surface. Moderate irregular cartilage thinning along the entire anterior medial femoral condyle articular surf nader. Scattered degenerative signal is present within both medial and lateral menisci without discrete meni scal tear. Extensor mechanism is overall intact but with heterogeneous signal at the quadriceps insertion and al so patellar tendon origin. The MCL, LCL complex, ACL, and PCL appear intact. No Fisher's cyst. Normal popliteal artery anatomy and muscle bulk. No suspicious bone marrow replacement. IMPRESSION: 1. Underlying patellofemoral compartmental arthroplasty. Metal artifact from the prosthesis limits th e evaluation. Underlying antegrade intramedullary nail within the proximal tibia as well. 2. Within the lateral compartment, there is severe, full-thickness cartilage loss along the entire an terior aspect of the lateral femoral condyle articular surface. 3. Within the medial compartment, there is moderate thickness irregular cartilage loss along the enti re anterior aspect of the medial femoral condyle articular surface. 4. Moderate joint effusion and mild chronic synovitis. 5. Mild insertional quadriceps tendinosis and mild proximal patellar tendinosis.
== END | disposition home or self-care (01) ==
LOC: RADMRIMAIN 07:31
PROVIDERS: ATTEND Orthopaedic Surgery Sports Medicine
DX: S83.241A Other tear of medial meniscus, current injury, right knee, initial encounter (principal); M25.461 Effusion, right knee; M65.9 Synovitis and tenosynovitis, unspecified; Z96.651 Presence of right artificial knee joint

== ENCOUNTER → 2022-12-19 | Outpatient (CLI) | payer OTHER ==
--- NOTE | 2022-12-19 12:47 | P.PN ---
Subjective DATE: 12/19/2022 FOLLOW UP VISIT. Patient returned to sleep center for follow-up visit related to treatment of significant excessive daytime sleepiness secondary to narcolepsy. Presently patient is on treatment with Adderall 10 mg twice a day, but she continued to feel sleepiness during the day is significant range. .[place] sleepiness scale is 17. No side effects of Adderall. MEDICATIONS:1. Adderall 10 mg twice a day 2. Amitriptyline 3. Buspirone 4. aripiprazole 5. Albuterol During physical exam: GENERAL: A pleasant patient without any distress. VITAL SIGNS: BP 114/77, HR 84, RR 16 , weight 182.0, temperature 97.4, oxygen saturation at room air 96% . HEENT: PERRLA, EOMI. NECK: Supple. No JVD. LUNGS: Clear to percussion and to auscultation. Good air exchange. No wheezing or rhonchi. HEART: S1, S2 regular. ABDOMEN: Soft and nontender. EXTREMITIES: No clubbing or cyanosis. CARBON ACCOUNTANT: Awake, alert, and oriented x3. No focal deficit. Impressions: 1. Narcolepsy confirmed by multiple sleep latency test. Mean sleep latency 4.2 minutes, one sleep onset REM periods have been documented. Patient is on amitriptyline which may decrease amount of REM sleep. 2. History of depression. 3. Back problems. 4. Acid reflux. 5. Asthma. 6. Status post right knee surgery. Plan: 1. Patient will continue treatment with Adderall, dose will be increased to 20 mg twice a day. 2. Sleep hygiene with regular time in bed for at least 8 hours. 3. Daytime naps permitted 4. Precautions related to driving. No driving if feel any sleepiness. Patient is aware about civil and criminal liability for unsafe driving, promised to follow recommendations. 5. Follow up visit in 4-6 months or earlier if patient has any problems. Thank you very much for allowing me to participate in the management of your patient. Luke Cornelius MD, PhD, FAASM. Diplomat of [place] [employer], Sleep Medicine Board by [place] [employer] Supervisor Wound of [facility] [place]
== END ==
LOC: 3 N SLEEP 11:07
PROVIDERS: ATTEND Internal Medicine
DX: G47.419 Narcolepsy without cataplexy (principal); F32.A Depression, unspecified; J45.909 Unspecified asthma, uncomplicated; K21.9 Gastro-esophageal reflux disease without esophagitis; M51.9 Unspecified thoracic, thoracolumbar and lumbosacral intervertebral disc disorder; Z98.890 Other specified postprocedural states; Z96.651 Presence of right artificial knee joint; Z79.51 Long term (current) use of inhaled steroids; Z91.041 Radiographic dye allergy status; Z91.048 Other nonmedicinal substance allergy status; Z88.2 Allergy status to sulfonamides; Z91.013 Allergy to seafood; Z91.018 Allergy to other foods
CPT/HCPCS: 99212

== ENCOUNTER → 2023-07-13 | Outpatient (CLI) | payer OTHER ==
--- NOTE | 2023-07-13 17:30 | P.PN ---
Subjective DATE: 07/13/2023 FOLLOW UP VISIT. Patient returned to sleep center for follow-up visit related to treatment of significant excessive daytime sleepiness secondary to narcolepsy. Presently patient is on treatment with Adderall 20 mg twice a day. With medication patient was able to control show alertness, no side effects. . Mason sleepiness scale is increased to 18. MEDICATIONS:1. Adderall 20 mg twice 2. Amitriptyline 3. Buspirone 4. Aripiprazole 5. Albuterol During physical exam: GENERAL: A pleasant patient without any distress. VITAL SIGNS: Please see below. HEENT: PERRLA, EOMI. NECK: Supple. No JVD. LUNGS: Clear to percussion and to auscultation. Good air exchange. No wheezing or rhonchi. HEART: S1, S2 regular. ABDOMEN: Soft and nontender. EXTREMITIES: No clubbing or cyanosis. VP [employer] SOCIAL [employer]IA AND CRM: Awake, alert, and oriented x3. No focal deficit. Impressions: 1. Narcolepsy, mostly uncontrolled with treatment of Adderall. Diagnosis was confirmed by multiple sleep latency test, mean sleep latency 4.2 minutes, 1 sleep onset REM. Have been documented. Patient was on amitriptyline which decrease amount of REM sleep 2. History of depression. 3. Back problems. 4. Acid reflux. 5. Asthma. 6. Status post right knee surgery. Plan: 1. Patient will continue treatment with Adderall 20 mg twice a day 2. Sleep hygiene with regular time in bed for at least 8 hours. 3. Daytime naps permitted 4. Precautions related to driving. No driving if feel any sleepiness. Patient is aware about civil and criminal liability for unsafe driving, promised to follow recommendations. 5. Follow up visit in 4-6 months or earlier if patient has any problems. Thank you very much for allowing me to participate in the management of your patient. Luke Cornelius MD, PhD, FAASM. Diplomat of [place] [employer], Sleep Medicine Board by [place] [employer] Splicer Machine Operator of [facility] [place] cc: Jacquie Pagan NP Objective - Vital Signs Vital signs: Vital Signs Temp 98 F 07/13/23 17:06 Pulse 84 07/13/23 17:06 Resp 16 07/13/23 17:06 BP 144/85 07/13/23 17:06 Pulse Ox 99 07/13/23 17:06 FiO2 Intake & Output 07/12/23 07/13/23 07/13/23 18:59 06:59 18:59 Weight 81.647 kg
[2023-07-13 17:37] VITALS: BP 144/85; PULSE 84; RESP 16; TEMP 98
== END ==
LOC: 3 N SLEEP 16:24
PROVIDERS: ATTEND Internal Medicine
DX: G47.33 Obstructive sleep apnea (adult) (pediatric) (principal); G47.419 Narcolepsy without cataplexy; M51.9 Unspecified thoracic, thoracolumbar and lumbosacral intervertebral disc disorder; M54.9 Dorsalgia, unspecified; K21.9 Gastro-esophageal reflux disease without esophagitis; G47.52 REM sleep behavior disorder; J45.909 Unspecified asthma, uncomplicated; Z86.59 Personal history of other mental and behavioral disorders; Z98.890 Other specified postprocedural states; Z79.899 Other long term (current) drug therapy; Z88.8 Allergy status to other drugs, medicaments and biological substances; Z91.041 Radiographic dye allergy status; Z91.048 Other nonmedicinal substance allergy status; Z91.013 Allergy to seafood; Z88.2 Allergy status to sulfonamides; Z91.018 Allergy to other foods
CPT/HCPCS: 99212

== ENCOUNTER → 2024-01-11 | Outpatient (CLI) | payer OTHER ==
[2024-01-11 17:16] VITALS: BP 128/85; PULSE 96; RESP 18; TEMP 97.9
--- NOTE | 2024-01-11 17:44 | P.PROGSL ---
Subjective DATE: 01/11/2024 FOLLOW UP VISIT. Patient returned to sleep center for follow-up visit related to treatment of significant excessive daytime sleepiness secondary to narcolepsy. Presently patient is on treatment with Adderall 20 mg at 9:30 AM and second tablet 20 mg at 3:30 PM. Medication works for about 4 to 5 hours subsequently in the middle of the day starting around 2 PM patient began developing sleepiness. She also feels sleepy in the evening hours. Previously we tried low-dose less than 20 mg and this doses did not work for the patient. [place] sleepiness scale is 14 today. MEDICATIONS: Please see below During physical exam: GENERAL: A pleasant patient without any distress. VITAL SIGNS: Please see below. Weight is 197.0 pounds. HEENT: PERRLA, EOMI. NECK: Supple. No JVD. LUNGS: Clear to percussion and to auscultation. Good air exchange. No wheezing or rhonchi. HEART: S1, S2 regular. ABDOMEN: Soft and nontender. EXTREMITIES: No clubbing or cyanosis. SANITARIAN AIDE: Awake, alert, and oriented x3. No focal deficit. Impressions: 1. Narcolepsy, diagnosis 1 confirmed by multiple sleep latency test. Mean sleep latency was short only 4.2 minutes. 1 sleep onset REM period have been documented, but patient is on treatment with amitriptyline which may decrease amount of REM sleep. Alertness improved on treatment with Adderall 20 mg twice a day, but still in the middle of the day and in the evening patient has sleepiness. 2. History of depression. 3. Back problems. 4. Acid reflux. 5. Asthma. 6. Status post right knee surgery. Plan: 1. Patient will continue treatment with Adderall 20 mg, but 3 times a day at 9:30, 2 PM and 6 PM. 2. Sleep hygiene with regular time in bed for at least 8 hours. 3. Daytime naps permitted and recommended for 15 to 20 minutes. 4. Precautions related to driving. No driving if feel any sleepiness. Patient is aware about civil and criminal liability for unsafe driving, promised to follow recommendations. 5. Follow up visit in 4-6 months or earlier if patient has any problems. Thank you very much for allowing me to participate in the management of your patient. Luke Cornelius MD, PhD, FAASM. Diplomat of [place] [employer], Sleep Medicine Board by [place] [employer] Application Support Consultant of [facility] [place] cc: Taya [facility], MSN phone [phone], fax [phone] Objective - Vital Signs Vital Signs: Vital Signs Temp 97.9 F 01/11/24 17:15 Pulse 96 01/11/24 17:15 Resp 18 01/11/24 17:15 BP 128/85 01/11/24 17:15 Pulse Ox 96 01/11/24 17:15 FiO2 Intake & Output 01/10/24 01/11/24 01/11/24 18:59 06:59 18:59 Weight 89.358 kg Home Medications: Home Medications Medication Instructions Recorded Confirmed Type Omeprazole [PriLOSEC] 20 mg PO HS 08/15/17 01/11/24 History ARIPiprazole [Abilify] 10 mg PO HS 11/26/19 01/11/24 History Albuterol Inhaler [Ventolin Hfa 2 puff INHALATION RT-Q6H PRN 02/01/20 08/17/22 History Inhaler] Amitriptyline HCl [Elavil] 75 mg PO HS 02/01/20 01/11/24 History Dicyclomine [Bentyl] 20 mg PO TID PRN 02/01/20 08/17/22 History Ondansetron Odt [Zofran Odt] 4 mg PO Q8HR PRN #12 tab 02/01/20 08/17/22 Rx HYDROcodone/APAP 5-325MG [[place] 1 tab PO Q4HR PRN 3 Days #18 tab 05/25/22 08/17/22 Rx 5-325] Dextroamphetamine/Amphetamine 10 mg PO BID 30 Days #60 tab 06/08/22 08/17/22 Rx [Adderall] Ibuprofen [Motrin] 800 mg PO Q8HR PRN #30 tab 07/17/22 08/17/22 Rx Dextroamphetamine/Amphetamine 20 mg PO BID 07/13/23 01/11/24 History [Adderall] busPIRone HCL 15 mg PO BID 01/11/24 01/11/24 History
== END ==
LOC: 3 N SLEEP 16:38
PROVIDERS: ATTEND Internal Medicine
CPT/HCPCS: 99212

== ENCOUNTER → 2024-07-11 | Outpatient (CLI) | payer OTHER ==
[2024-07-11 16:35] VITALS: BP 124/83; PULSE 93; RESP 20; TEMP 97.7
--- NOTE | 2024-07-11 17:44 | P.PROGSL ---
Subjective DATE: 07/11/2024 FOLLOW UP VISIT. Patient returned to sleep center for follow-up visit related to treatment of significant excessive daytime sleepiness secondary to narcolepsy. Patient is on treatment with Adderall 20 mg 3 times a day. Patient takes medication every 4 hours. Usually it is covering your sleepiness during the day. Sometimes he may feel sleepiness before taking next dose of medication. . Powers sleepiness scale is 19. MEDICATIONS: Please see below During physical exam: GENERAL: A pleasant patient without any distress. VITAL SIGNS: Please see below. HEENT: PERRLA, EOMI. NECK: Supple. No JVD. LUNGS: Clear to percussion and to auscultation. Good air exchange. No wheezing or rhonchi. HEART: S1, S2 regular. ABDOMEN: Soft and nontender. EXTREMITIES: No clubbing or cyanosis. SUB ASSEMBLY TEAM WORKER: Awake, alert, and oriented x3. No focal deficit. Impressions: 1. Narcolepsy, confirmed by multiple sleep latency test with mean sleep latency of 4.2-minute and 1 sleep onset REM, but patient was on treatment with amitriptyline which may decrease amount of REM sleep. 2. History of depression. 3. Acid reflux. 4. Back problems. 5. Asthma. 6. Status post right knee surgery. Plan: 1. Patient will continue treatment with Adderall 20 mg 3 times a day 2. Sleep hygiene with regular time in bed for at least 8 hours. 3. Daytime naps permitted 4. Precautions related to driving. No driving if feel any sleepiness. Patient is aware about civil and criminal liability for unsafe driving, promised to follow recommendations. 5. Follow up visit in 4-6 months or earlier if patient has any problems. Thank you very much for allowing me to participate in the management of your patient. Luke Cornelius MD, PhD, FAASM. Diplomat of [place] [employer], Sleep Medicine Board by [place] [employer] Tele Marketing Executive of [facility] [place] cc: CHRISSIE Dawkins-VERONICA, MSN Objective - Vital Signs Vital Signs: Vital Signs Temp 97.7 F 07/11/24 16:32 Pulse 93 07/11/24 16:32 Resp 20 07/11/24 16:32 BP 124/83 07/11/24 16:32 Pulse Ox 96 07/11/24 16:32 FiO2 Intake & Output 07/10/24 07/11/24 07/11/24 18:59 06:59 18:59 Weight 89.981 kg Home Medications: Home Medications Medication Instructions Recorded Confirmed Type Omeprazole [PriLOSEC] 20 mg PO HS 08/15/17 07/11/24 History ARIPiprazole [Abilify] 10 mg PO HS 11/26/19 07/11/24 History Albuterol Inhaler [Ventolin Hfa 2 puff INHALATION RT-Q6H PRN 02/01/20 08/17/22 History Inhaler] Amitriptyline HCl [Elavil] 75 mg PO HS 02/01/20 07/11/24 History Dicyclomine [Bentyl] 20 mg PO TID PRN 02/01/20 08/17/22 History Ondansetron Odt [Zofran Odt] 4 mg PO Q8HR PRN #12 tab 02/01/20 08/17/22 Rx HYDROcodone/APAP 5-325MG [[place] 1 tab PO Q4HR PRN 3 Days #18 tab 05/25/22 08/17/22 Rx 5-325] Dextroamphetamine/Amphetamine 10 mg PO BID 30 Days #60 tab 06/08/22 08/17/22 Rx [Adderall] Ibuprofen [Motrin] 800 mg PO Q8HR PRN #30 tab 07/17/22 08/17/22 Rx Dextroamphetamine/Amphetamine 20 mg PO TID 07/13/23 07/11/24 History [Adderall] busPIRone HCL 15 mg PO BID 01/11/24 07/11/24 History Salmeterol 50 mcg [Serevent Diskus] 50 mg PO BID 07/11/24 07/11/24 History
== END ==
LOC: 3 N SLEEP 16:16
PROVIDERS: ATTEND Internal Medicine
DX: G47.419 Narcolepsy without cataplexy (principal); K21.9 Gastro-esophageal reflux disease without esophagitis; J45.909 Unspecified asthma, uncomplicated; Z86.59 Personal history of other mental and behavioral disorders; Z96.651 Presence of right artificial knee joint; Z91.018 Allergy to other foods; Z91.013 Allergy to seafood; Z88.2 Allergy status to sulfonamides; Z88.5 Allergy status to narcotic agent; Z91.048 Other nonmedicinal substance allergy status
CPT/HCPCS: 99212